=== PATIENT | female | born 1970 | race Caucasian/White ===

== ENCOUNTER → 2017-04-21 | Outpatient (CLI) | payer OTHER | LOC: FIMAGING 11:29 | PROVIDERS: ATTEND Obstetrics & Gynecology Gynecology | DX: Z12.31 Encounter for screening mammogram for malignant neoplasm of breast (principal) | CPT/HCPCS: G0202 ==

== ENCOUNTER → 2018-05-04 | Outpatient (CLI) | payer OTHER | LOC: FIMAGING 07:57 | DX: Z12.31 Encounter for screening mammogram for malignant neoplasm of breast (principal) ==